=== PATIENT | female | born 1995 | race Caucasian/White ===

== ENCOUNTER 2019-10-21 05:35 | Outpatient (CLI) | payer BC, OTHER ==
[2019-10-21 16:34] LABS: Hemoglobin 15.9 g/dL (12.0-16.0); Mean Corpuscular HGB CONC 34.3 g/dL (32.0-36.0); Mean Corpuscular Hemoglobin 31.7 pg (27.0-31.0); Mean Corpuscular Volume 92.3 fL (78.0-98.0); Mean Platelet Volume 8.3 fL (7.4-10.4); Platelet Count 236 thou/uL (130-400); RBC Distribution Width 10.5 % (11.5-14.5); Red Blood Cell (RBC) Count 5.03 mill/uL (4.20-5.40); White Blood Cell (WBC) Count 6.2 thou/uL (4.8-10.8)
[2019-10-21 17:17] LABS: BHCG - Serum Negative (NEGATIVE); Pregs Control Background? CLEAR/WHITE (CLR/WHITE); Pregs Control Bar Appear? YES (CONTROL BAR)
[2019-10-21 17:23] LABS: Anion Gap 18 mmol/L (10-20); BUN (Urea Nitrogen) 10 mg/dL (7.0-18.7); Calc. Creatinine Clearance 0 mL/min (70-130); Calcium 9.6 mg/dL (7.8-10.44); Carbon Dioxide 20 mmol/L (22-29); Chloride 107 mmol/L (98-107); Estimated GFR-MDRD 77; Glucose 95 mg/dL (70-105); Potassium 4.6 mmol/L (3.5-5.1); Sodium 140 mmol/L (136-145)
[2019-10-22 14:43] LABS: SARS-CoV-2 MS2 Positive; SARS-CoV-2 N Gene Negative; SARS-CoV-2 S Gene Negative; SARS-CoV-2 by NAA Not Detected (NotDetected); SARS-CoV-2 orf1ab Negative
== END 2019-10-21 05:36 | disposition home or self-care (01) ==
LOC: LABBT 05:35
PROVIDERS: ATTEND Thoracic Surgery (Cardiothoracic Vascular Surgery)
DX: Z01.812 Encounter for preprocedural laboratory examination (principal); Z11.59 Encounter for screening for other viral diseases; J93.9 Pneumothorax, unspecified
CPT/HCPCS: 80048; 84703; 85027; 87635; U0003

== ENCOUNTER 2019-10-25 14:53 | Outpatient (CLI) | payer BC ==
--- NOTE | 2019-10-25 15:15 | RAD ---
TWO VIEW CHEST: HISTORY: Pneumothorax. COMPARISON: There are no comparison studies. FINDINGS: A right-sided chest tube is in place with tip overlying the posterior right mid chest. The lungs are well aerated and clear. No evidence of pneumothorax identified. Heart and mediastinum unremarkable. Osseous structures unremarkable. IMPRESSION: Right-sided chest tube. No evidence of significant pneumothorax. POS: AGW
== END 2019-10-25 14:54 | disposition home or self-care (01) ==
LOC: RAD 14:53
PROVIDERS: ATTEND Thoracic Surgery (Cardiothoracic Vascular Surgery)
DX: J93.83 Other pneumothorax (principal)
CPT/HCPCS: 71046

== ENCOUNTER 2019-12-08 10:18 | Inpatient (IN) | payer BC, OTHER ==
[2019-12-08] MEDS ORDERED: Lidocaine 1% w/Epinephrine 1:100K 20 ML VIAL ONE (10:50)
--- NOTE | 2019-12-08 10:57 | RAD ---
XR Chest 1 View Portable HISTORY: Spontaneous pneumothorax COMPARISON: 11/02/2019 FINDINGS: The heart size normal. The left lung is clear. There is a large right pneumothorax. Report was called over the telephone to Dr. Babcock in the emergency room at 10:54 AM
[2019-12-08] MEDS ORDERED: Ketorolac Tromethamine 30 MG/ML VIAL ONE (11:03)
[2019-12-08] MEDS ORDERED: PROPOFOL 200 MG/20 ML VIAL ONE (11:03)
[2019-12-08] MEDS ORDERED: Rocuronium Bromide 10 MG/ML (10ML VIAL) ONE (11:03)
[2019-12-08] MEDS ORDERED: PHENYLEPHRINE-NS 100 MCG/ML 10 ML SYRINGE ONE (11:03)
[2019-12-08] MEDS ORDERED: Dexamethasone 20 MG/5 ML VIAL ONE (11:03)
[2019-12-08] MEDS ORDERED: Glycopyrrolate 0.2 MG/ML 5 ML SYRINGE ONE (11:03)
[2019-12-08] MEDS ORDERED: Ondansetron PF 4 MG/2 ML Vial ONE (11:03)
[2019-12-08] MEDS ORDERED: Lidocaine 1% PF 5 ML VIAL ONE (11:03)
[2019-12-08] MEDS ORDERED: EPHEDRINE 25 MG/5 ML SYRINGE ONE (11:03)
--- NOTE | 2019-12-08 11:23 | RAD ---
EXAM: Single view of the chest HISTORY: Right pneumothorax COMPARISON: 12/08/2019 at 10:42 AM FINDINGS: Single view of the chest shows a normal sized cardiomediastinal silhouette. The large righ t-sided pneumothorax is unchanged in size. A pigtail catheter projects over the chest wall. There is no evidence of consolidation, mass, or pleural effusion. No acute osseous abnormality. IMPRESSION: Unchanged right pneumothorax. Confirmation of the catheter is in the thoracic cavity brandy ot definitely be performed on this one view.
--- NOTE | 2019-12-08 12:18 | CT ---
CT CHEST WITHOUT CONTRAST: History: Pneumothorax. Comparison: Chest radiograph same day. Findings: Large right tension pneumothorax with leftward mediastinal shift. The right-sided thoracostomy pigtai l tube is contained within a bulla and kinked. Abnormal consolidative volume loss throughout the right middle and right lower lobes. Numerous right-sided bullae which are paraseptal. This is asymmetric with the left lung having absent bullous disease. Sternum and manubrium are intact. Ascending aorta is enlarged measuring 4 cm. No acute osseous abnorm ality. Impression: 1. Large tension pneumothorax on the right with the right-sided thoracostomy tube kinked and containe d within a bulla. Reattempt of thoracostomy tube placement recommended at a lower position away from the pulmonary bleb/bullae. 2. Dilated ascending aorta with asymmetric pulmonary blebs/bullous formation can be seen with Marfan' s syndrome and other connective tissue diseases. Outpatient workup recommended. Dr. Babcock was notified of findings via telephone at 12:15 PM CODE CR Transcribed Date/Time: 12/08/2019 12:23 PM
[2019-12-08] MEDS ORDERED: Talc Infusion/Pleuradesis 4 GM BOT I-PLEURAL SCH (13:30)
[2019-12-08 14:29] LABS: #Lymphocytes 1.7 thou/uL (1.20-3.40); #Monocytes 0.6 thou/uL (0.11-0.59); #Neutrophils 8.6 thou/uL (1.40-6.50); %Basophils 0.2 % (0.0-1.0); %Eosinophils 0.2 % (0.0-10.0); %Lymphocytes 15.7 % (21.0-51.0); %Monocytes 5.4 % (0.0-10.0); %Neutrophils 78.5 % (42.0-75.0); Hemoglobin 16.1 g/dL (12.0-16.0); Mean Corpuscular HGB CONC 33.3 g/dL (32.0-36.0); Mean Corpuscular Hemoglobin 30.3 pg (27.0-31.0); Mean Platelet Volume 8.2 fL (7.4-10.4); Platelet Count 251 thou/uL (130-400); Red Blood Cell (RBC) Count 5.31 mill/uL (4.20-5.40); White Blood Cell (WBC) Count 10.9 thou/uL (4.8-10.8)
[2019-12-08 14:43] LABS: SARS-CoV-2 NAA Rapid Test Not Detected (NotDetected)
[2019-12-08 15:02] LABS: ALT (SGPT) 18 U/L (8-55); AST (SGOT) 23 U/L (5-34); Albumin 4.7 g/dL (3.5-5.0); Alkaline Phosphatase 70 U/L (40-110); Anion Gap 17 mmol/L (10-20); BUN (Urea Nitrogen) 10 mg/dL (7.0-18.7); Bilirubin, Total 0.5 mg/dL (0.2-1.2); Calc. Creatinine Clearance 0 mL/min (70-130); Calcium 9.6 mg/dL (7.8-10.44); Carbon Dioxide 19 mmol/L (22-29); Chloride 106 mmol/L (98-107); Estimated GFR-MDRD 80; Globulin 3.2 g/dL (2.4-3.5); Glucose 66 mg/dL (70-105); Potassium 3.9 mmol/L (3.5-5.1); Protein, Total 7.9 g/dL (6.0-8.3); Sodium 138 mmol/L (136-145)
[2019-12-08] MEDS ORDERED: Fentanyl 100 MCG/2 ML VIAL ONE ×3 (15:31→18:40)
[2019-12-08] MEDS ORDERED: Bupivacaine HCl 0.5%/Epinephrine 1:200,000/PF 30 ml Vial ONE (15:50)
[2019-12-08] MEDS ORDERED: Midazolam HCl 2 mg/2 ml Vial ONE (15:55)
[2019-12-08 16:02] LABS: BHCG - Serum Negative (NEGATIVE); Pregs Control Background? CLEAR/WHITE (CLR/WHITE); Pregs Control Bar Appear? YES (CONTROL BAR)
[2019-12-08] MEDS ORDERED: HYDROcodone/Acetaminophen 5/325 mg Tablet PO PRN ×2 (18:06)
[2019-12-08] MEDS ORDERED: Fentanyl 100 MCG/2 ML VIAL SLOW IVP PRN ×2 (18:06)
[2019-12-08] MEDS ORDERED: Ondansetron PF 4 MG/2 ML Vial IVP PRN ×2 (18:06→19:01)
[2019-12-08] MEDS ORDERED: Ondansetron HCl/PF 4 MG/2 ML Vial IVP PRN (18:16)
[2019-12-08] MEDS ORDERED: Promethazine HCl 25 MG/ML VIAL SLOW IVP PRN (18:16)
[2019-12-08] MEDS ORDERED: Promethazine HCl 25 MG/ML VIAL IM PRN ×2 (18:16→19:01)
--- NOTE | 2019-12-08 18:59 | RAD ---
Portable frontal chest radiograph: 12/08/2019 COMPARISON: 12/08/2019 HISTORY: Evaluate chest following placement of chest tube/thoracotomy FINDINGS: A right-sided chest tube is present. Suture line overlies the right infrahilar region. No p neumothorax is seen on either side. Mild hazy density in the mid right lung zone/right lung base noted, suggesting volume loss and/or postoperative change. The left lung appears clear. IMPRESSION: Right chest tube in place. No discrete pneumothorax seen on either side.
[2019-12-08] MEDS ORDERED: diphenhydrAMINE 50 MG/ML VIAL IM PRN (19:01)
[2019-12-08] MEDS ORDERED: fentaNYL Citrate/PF 2,000 MCG in Sodium Chloride 0.9% 60 ML IV PRN (19:01)
[2019-12-08] MEDS ORDERED: Naloxone HCl 0.4 mg/ml Vial IV PRN (19:01)
[2019-12-08] MEDS ORDERED: Zolpidem Tartrate 5 MG TAB PO PRN (19:01)
[2019-12-08] MEDS ORDERED: Communication Order-Pharmacy FS SCH (19:15)
[2019-12-08] MEDS: Sodium Chloride 0.9% 1,000 ML IV SCH ×2 (20:37→20:50)
[2019-12-08 21:42] VITALS: BMI 19.1
[2019-12-08] MEDS: Ketorolac Tromethamine 30 MG/ML VIAL IVP SCH (23:48)
[2019-12-08] MEDS: diphenhydrAMINE 50 MG/ML VIAL IVP PRN (23:50)
--- NOTE | 2019-12-09 00:07 | HP ---
CHIEF COMPLAINT: Right-sided chest pain and shortness of breath. HISTORY OF PRESENT ILLNESS: The patient is a 24-year-old woman who in September had a right-sided spontaneous pneumothorax treated with chest tube. She was a little bit slow to seal her air leak and she opted to continue waiting rather than pursuing bleb stapling. In followup the following week, the air leak had sealed and her chest tube was removed. Earlier this week, she had pleuritic chest pain, similar to the pain that she had before. She describes going to the [facility] yesterday and convincing them to take an x-ray which showed a pneumothorax. Today, she began getting short of breath, so she went to the [facility] Emergency Room, was found to have a large pneumothorax and an attempt was made by the emergency room physician to decompress it with a small bore catheter and a Heimlich valve. She did not re-expand and a CT scan done suggested that the tube might even be intraparenchymal rather than attempting further manipulations of this tube replacing another as she was in stable condition and not very uncomfortable. I offered to proceed with bleb stapling now and she agreed. PAST MEDICAL HISTORY: As above. Reports history of anxiety. MEDICATIONS: Zoloft, trazodone, Topamax, control pills, and simvastatin. ALLERGIES: SHE REPORTS AN ALLERGY TO NEOMYCIN. FAMILY HISTORY: She has no family history of pneumothoraces. REVIEW OF SYSTEMS: Negative for any trauma. Positive for the pleuritic chest pain, shortness of breath. Negative for any cough or fever. PHYSICAL EXAMINATION: GENERAL: She is in no distress. VITAL SIGNS: O2 sats on room air 96%, heart rate 109 and that came down to 81, blood pressure initially 135/99 and came down to 127/90. CHEST: She has a small bore catheter in place in the right upper anterior chest. Clear breath sounds on the left, somewhat diminished breath sounds on the right. ABDOMEN: Soft, nontender. She has no crepitus. She has no tracheal deviation. Her chest x-ray shows some adherence of the lung at the apex, but otherwise complete pneumothorax. Her CT scan shows areas of blebs with lung adherent anteriorly at the apex. The aortic root is about 3.7 cm AP x 3.6 cm transversely. The descending aorta at that same level is 1.7 x 1.5 cm. IMPRESSION AND PLAN: Recurrent spontaneous pneumothorax, inadequately re-expanded with a small bore catheter done at the bedside. Since she would be best treated with a bleb stapling and pleurodesis anyway, she is stable and all she has had to eat or drink today is Dr Encarnacion at about 8 o'clock this morning, some 4 hours or 4.5 hours ago. I have offered to simply put her next in line on my surgery schedule and proceed with thoracoscopic bleb stapling and pleurodesis. She agrees to proceed in that manner. Job ID: [id number]
--- NOTE | 2019-12-09 00:57 | OP ---
DATE OF PROCEDURE: 12/08/2019 PROCEDURE PERFORMED: 1. Right thoracoscopic plication of right middle lobe blebs and combined mechanical and talc pleurodesis. 2. Multiple intercostal rib blocks. PREOPERATIVE DIAGNOSIS: Recurrent spontaneous right pneumothorax. POSTOPERATIVE DIAGNOSIS: Recurrent spontaneous right pneumothorax. ANESTHESIA: General endotracheal anesthesia. INDICATIONS: The patient is a 24-year-old woman who had a right-sided chest tube placed in the middle of September of this year for a 1st episode of spontaneous right pneumothorax. Earlier this week, she began having pleuritic chest pain reminiscent of her previous pneumothorax and today became short of breath. She presented to the emergency room. She was found to have a large right-sided pneumothorax. The ER physician unsuccessfully attempted to re-expand the lung with a small bore catheter and a Heimlich valve. She is now taken to the operating room for thoracoscopy. FINDINGS: Large blebs along the superior lateral aspect of the middle lobe with some adhesions anteromedially towards the apex. DESCRIPTION OF PROCEDURE: After informed consent was obtained, the patient was taken to the operating room, placed in supine position on the operating table. After the induction of general anesthesia and positioning of her double-lumen endotracheal tube, she was turned into the left lateral decubitus position and her right chest was prepped and draped in sterile fashion. About one interspace above her previous chest tube site, which had been at the level of the xiphoid, an incision was made about the anterior axillary line using a scalpel and electrocautery, blunt dissection was used to dissect through the muscle layers and into the pleural space. The thoracoscope port and scope were inserted. Some adhesions of the lung to the chest wall towards the apex anteriorly were noted and quite prominent blebs were seen on the lateral aspect of the lung. An incision was made through the previous chest tube site. Blunt dissection was used to enter the pleural space superiorly and posteriorly from that skin incision and through that, grasping instruments were placed to manipulate the lung. There was some adhesion of the blebs within the fissure and the adhesions of the lung to the chest wall were too dense and appeared to be a bit vascular to attempt simple blunt dissection of them to mobilize the lung for access to the blebs and to inspect the rest of the lung. In the same interspace as the port site, an incision was made posterior to the tip of the scapula and the pleural space entered through those incisions. Grasping instruments were placed anteriorly to apply posterolateral traction on the lung and cautery christopher were used to lyse the adhesions to help mobilize the lung. No additional blebs could be identified. With this mobilization, it was possible to identify that these blebs appeared to be in the middle lobe, although there was 1 bleb in the fissure that was difficult to identify its origin. The upper lobe was grasped and blunt dissection was used to free up this bleb. It could be appreciated, that it was also arising from the middle lobe, but adhered to the upper lobe within the fissure. The base of these blebs appear to be free from the fissure close proximity to major vasculature and were amenable to plication. No other blebs could be identified on the lower lobe or the upper lobe. A stapling device was used to excise these blebs. They were delivered from the chest through the anterior-most incision and sent for pathologic examination. A blunt dissection was used to elevate areas of pleura and abraded and then 8 g of talc was aerosolized into the pleural space. A 20-[place] chest tube was placed through the anterior most incision and positioned posteroapically. It was secured to the skin with suture and the lung was reinflated. A total of 30 mL of 0.5% Marcaine with epinephrine was used to infiltrate the 3 incisions and to perform intercostal rib blocks. Three interspaces below and 2 interspaces above the port sites. The 2 port sites were then closed with 0-Vicryl for the muscle and subcutaneous layers and 4-0 Vicryl subcuticular suture and Steri-Strips for the skin. The wounds were dressed. The chest tube was connected to close suction drainage. The patient was awakened and extubated in the operating room and taken to the recovery area in good condition. Job ID: [id number]
[2019-12-09] MEDS: Ketorolac Tromethamine 30 MG/ML VIAL IVP SCH ×4 (05:39→23:30)
[2019-12-09] MEDS: diphenhydrAMINE 50 MG/ML VIAL IVP PRN ×2 (06:07→19:45)
--- NOTE | 2019-12-09 08:08 | RAD ---
EXAM: Single view of the chest HISTORY: Right pneumothorax status post thoracotomy COMPARISON: 12/08/2019 FINDINGS: Single view of the chest shows a normal sized cardiomediastinal silhouette. There is a rig ht-sided chest tube. There is a small right apical pneumothorax. Air is seen in the right chest wall. There is no evidence of consolidation, mass, or pleural effusion. No acute osseous abnormality . IMPRESSION: Status post chest tube placement with small right apical pneumothorax
[2019-12-09] MEDS: Sodium Chloride 0.9% 1,000 ML IV SCH ×2 (14:43→23:12)
[2019-12-09] MEDS: fentaNYL Citrate/PF 2,000 MCG in Sodium Chloride 0.9% 60 ML IV PRN (15:59)
[2019-12-10] MEDS: diphenhydrAMINE 50 MG/ML VIAL IVP PRN (02:55)
[2019-12-10] MEDS: Ketorolac Tromethamine 30 MG/ML VIAL IVP SCH ×3 (06:40→18:34)
[2019-12-10] MEDS: Sodium Chloride 0.9% 1,000 ML IV SCH ×2 (09:35→21:31)
[2019-12-10] MEDS: fentaNYL Citrate/PF 2,000 MCG in Sodium Chloride 0.9% 60 ML IV PRN (12:06)
[2019-12-10] MEDS: diphenhydrAMINE 25 MG CAP PO PRN ×3 (14:22→23:38)
--- NOTE | 2019-12-10 14:47 | RAD ---
EXAM: CHEST ONE VIEW: 12/10/19 HISTORY: Status post pleurodesis. COMPARISON: 12/09/19. FINDINGS: Right chest tube in place with probable small residual right sided pleural air with some fairly exten sive subcutaneous emphysema which has worsened from the prior study. There is some patchy increased p arenchymal changes in the right lung and pleural effusion changes in the right base. Left chest is no rmal. IMPRESSION: Worsening pleural and parenchymal opacity changes in the right chest with persistent right sided pleu ral air with worsening right sided subcutaneous emphysema. POS: OFF
[2019-12-10] MEDS: Atorvastatin Calcium 20 MG TAB PO SCH (21:13)
[2019-12-10] MEDS: Topiramate 25 MG TAB PO SCH (21:30)
[2019-12-10] MEDS: LO LOESTRIN FE PO SCH (21:30)
[2019-12-11] MEDS: Sodium Chloride 0.9% 1,000 ML IV SCH ×2 (06:45→18:07)
--- NOTE | 2019-12-11 09:35 | RAD ---
EXAM: CHEST ONE VIEW HISTORY: Post pleurodesis COMPARISON: 12/10/2019 FINDINGS: Cardiac silhouette is within normal limits. Right-sided thoracostomy tube is again seen. Radiopaque s utures overlie the right lung base. Again noted is suggestion of small persistent right sided pneumothorax prominent subcutaneous emphysema about the right chest extending into the right supracla vicular location. Patchy parenchymal density within the right lung zone and right lung base may be related to recent postoperative changes and volume loss. Left lung remains clear. IMPRESSION: Stable chest with right-sided thoracostomy tube, postoperative changes right lung and persistent righ t pneumothorax with mild parenchymal lung changes which may be related to volume loss.
[2019-12-11] MEDS: fentaNYL Citrate/PF 2,000 MCG in Sodium Chloride 0.9% 60 ML IV PRN (12:48)
[2019-12-11] MEDS: diphenhydrAMINE 25 MG CAP PO PRN ×2 (14:25→20:43)
[2019-12-11] MEDS: Atorvastatin Calcium 20 MG TAB PO SCH (20:43)
[2019-12-11] MEDS: LO LOESTRIN FE PO SCH (20:44)
[2019-12-11] MEDS: Topiramate 25 MG TAB PO SCH (20:44)
[2019-12-12] MEDS: Sodium Chloride 0.9% 1,000 ML IV SCH ×2 (03:37→13:54)
--- NOTE | 2019-12-12 07:47 | RAD ---
Exam: Chest one view HISTORY:Pleurodesis Comparison: 12/11/2019 FINDINGS: Cardiac silhouette: Normal Aorta: Unremarkable Pulmonary vessels: Normal Costophrenic angles: Clear LUNGS: Stable postoperative changes in the right lung. Lines and tubes: Stable right-sided chest tube. Pneumothorax: Persistent but decreased right-sided pneumothorax. Stable subcutaneous emphysema in the right neck and chest. Osseous abnormalities: None IMPRESSION: Persistent but decreased right-sided pneumothorax.
[2019-12-12] MEDS: fentaNYL Citrate/PF 2,000 MCG in Sodium Chloride 0.9% 60 ML IV PRN (14:49)
[2019-12-12] MEDS: diphenhydrAMINE 25 MG CAP PO PRN (19:25)
[2019-12-12] MEDS: Topiramate 25 MG TAB PO SCH (21:14)
[2019-12-12] MEDS: Atorvastatin Calcium 20 MG TAB PO SCH (21:14)
[2019-12-12] MEDS: LO LOESTRIN FE PO SCH (21:19)
--- NOTE | 2019-12-13 07:42 | RAD ---
Chest one view HISTORY: Pleurodesis. Follow-up. COMPARISON: 12/12/2019. FINDINGS: Cardiac silhouette is magnified by projection. Pulmonary vasculature is unremarkable. Mediastinum is midline. Atelectasis and postoperative changes of the right lung are stable. Right thoracostomy tube remains in place. Mild residual pleural fluid, including within the right min or fissure is stable. No residual pneumothorax evident. Gas remains throughout the right chest wall extending to the neck. Left lung is well-inflated. IMPRESSION : Stable postoperative appearance of the chest.
[2019-12-13] MEDS ORDERED: Fentanyl 100 MCG/2 ML VIAL SLOW IVP PRN (08:50)
[2019-12-13] MEDS: HYDROcodone/Acetaminophen 5/325 mg Tablet PO PRN ×3 (10:18→20:25)
[2019-12-13] MEDS: LO LOESTRIN FE PO SCH (20:24)
[2019-12-13] MEDS: Topiramate 25 MG TAB PO SCH (20:25)
[2019-12-13] MEDS: Atorvastatin Calcium 20 MG TAB PO SCH (20:25)
[2019-12-13] MEDS: Mag-Al 1200 mg/1200 mg/30 ML UDCUP PO PRN (22:00)
[2019-12-14] MEDS: HYDROcodone/Acetaminophen 5/325 mg Tablet PO PRN ×2 (05:14→15:04)
[2019-12-14] MEDS: Mag-Al 1200 mg/1200 mg/30 ML UDCUP PO PRN (05:16)
--- NOTE | 2019-12-14 08:13 | RAD ---
EXAM: Single view of the chest HISTORY: Chest tube for pneumothorax COMPARISON: 12/13/2019 FINDINGS: Single view of the chest shows a normal sized cardiomediastinal silhouette. There is a rig ht-sided chest tube without evidence of pneumothorax. Pleural thickening is seen in the superior and lateral aspect of the right thorax. An anastomotic staple line projects over the midportion of th e right chest. There is no evidence of consolidation, mass, or pleural effusion. No acute osseous abnormality. Decreasing air is seen in the right chest wall. IMPRESSION: Stable exam
--- NOTE | 2019-12-14 12:20 | RAD ---
PORTABLE CHEST 1 VIEW: Date: 12/14/2019 Time: 1156 hours HISTORY: Chest tube removal. FINDINGS/IMPRESSION: There has been interval removal of the right-sided chest tube since earlier exam at 0524 hours. No pn eumothorax is seen. Postop changes in the right lower lung are again seen. The left lung is clear. Th e heart size is normal. There is subcutaneous emphysema in the right lower neck. POS: AH
[2019-12-14 15:26] VITALS: BP 134/85; TEMP 99
--- NOTE | 2019-12-15 02:03 | DIS ---
DATE OF ADMISSION: 12/08/2019 DATE OF DISCHARGE: 12/14/2019 PRINCIPAL DIAGNOSIS: Recurrent spontaneous right pneumothorax. PROCEDURES PERFORMED: Small-bore right tube thoracostomy, 12/08/2019. Right thoracoscopic plication of right middle lobe blebs and combined mechanical and talc pleurodesis, 12/08/2019. HISTORY OF PRESENT ILLNESS AND HOSPITAL COURSE: The patient is a 24-year-old woman who in September had her 1st episode of spontaneous pneumothorax. While it was relatively easy to re-expand the lung, sealing the air leak was somewhat delayed. At that time, she was offered, but deferred pleurodesis. She, a few days prior to presentation, developed recurrence of pleuritic pain on the day of presentation to the emergency room and had become short of breath. She was found to have a large pneumothorax on the same side as her previous one. The ER physician attempted decompression and re-expansion of the lung with a small-bore catheter and Heimlich valve. This was unsuccessful, prompting CT scanning, which was worrisome for positioning of the catheter in the bleb. The patient was stable and comfortable and had no air leak through the catheter rather than attempting manipulation of that catheter or placement of another catheter or tube only and have her return at another day since she had only had clear liquids at breakfast time. It was opted to take her to the operating room for definitive treatment. Next, in line of my OR schedule, she was found to have an extensive amount of bolus changes on this surface of the right middle lobe. These were excised and a combined mechanical and talc pleurodesis was performed. She did not have a complete re-expansion of her lung and it actually came down a little bit more overnight. Transiently placing the tube to wall suction demonstrated that she had an ongoing but small air leak. Her tube was left to suction. She had persistence of an air leak and incomplete re-expansion of the lung through postop days 2 and 3. On postoperative day 4, she appeared to have sealed her air leak, but the lung was still incompletely re-expanded. Her tube was tripped again transiently placed to wall suction evacuating some air. In the following day, her chest x-ray showed her lungs to be re-expanded. There was no obvious air leak, and it was opted to place the tube to a water-seal. This morning, there was still no air leak and the lung was re-expanded and the tube was removed. A followup chest x-ray at mid day showed no redevelopment of airspace and she is being discharged home to resume her home medications and with a prescription for Vicodin as needed for pain. Job ID: [id number]
== END 2019-12-14 15:27 | disposition home or self-care (01) | DRG 165 ==
LOC: ERS 10:18 → SURG B 12:46
PROVIDERS: ADMIT Thoracic Surgery (Cardiothoracic Vascular Surgery); ATTEND Thoracic Surgery (Cardiothoracic Vascular Surgery)
PROC: 0BQ Respiratory System, Repair (ICD-10-PCS; principal; 2019-12-08)
PROC: 0W9940Z Drainage of Right Pleural Cavity with Drainage Device, Percutaneous Endoscopic Approach (ICD-10-PCS; 2019-12-08)
PROC: 3E0L4GC Introduction of Other Therapeutic Substance into Pleural Cavity, Percutaneous Endoscopic Approach (ICD-10-PCS; 2019-12-08)
DX: J93.83 Other pneumothorax (principal); J98.2 Interstitial emphysema; J98.4 Other disorders of lung; Z20.828 Contact with and (suspected) exposure to other viral communicable diseases; E78.5 Hyperlipidemia, unspecified; E78.00 Pure hypercholesterolemia, unspecified; F41.9 Anxiety disorder, unspecified; Z79.899 Other long term (current) drug therapy; Z88.1 Allergy status to other antibiotic agents
CPT/HCPCS: 32551; 71045; 71250; 80053; 84703; 85025; 88305; J0670; J0690; J1100; J1200; J1885; J2250; J2405; J2704; J3010; J3490; Q0163; U0002

== ENCOUNTER 2020-01-19 14:27 | Outpatient (CLI) | payer BC ==
--- NOTE | 2020-01-19 16:40 | RAD ---
XR Chest Pa Lat STANDARD HISTORY: Spontaneous pneumothorax COMPARISON: 12/14/2019 FINDINGS: The heart size is normal. The lungs are well expanded without focal areas of consolidation, pneumothorax or pleural effusions. There are postop changes in the right lung.. IMPRESSION: No radiographic evidence of acute cardiopulmonary process.
== END 2020-01-19 14:28 | disposition home or self-care (01) ==
LOC: RAD 14:27
PROVIDERS: ATTEND Thoracic Surgery (Cardiothoracic Vascular Surgery)
DX: J93.83 Other pneumothorax (principal)
CPT/HCPCS: 71046